=== PATIENT | female | born 2000 | race American Indian/Alaskan Native ===

== ENCOUNTER 2020-06-22 22:23 | Emergency (ER) | payer OTHER ==
[2020-06-22 22:31] VITALS: BP 119/74
[2020-06-23 00:03] LABS: Basophils % (Auto) 0.6 % (0.0-1.8); Hematocrit 35.7 % (30.3-42.9); Hemoglobin 12.4 gm/dl (10.1-14.3); Lymphocytes # (Auto) 1.4 K/mm3 (1.2-5.4); Lymphocytes % (Auto) 18.7 % (13.4-35.0); Mean Corpuscular HGB Conc 35 % (30-34); Mean Corpuscular Volume 88 fl (79-97); Monocytes # (Auto) 0.2 K/mm3 (0.0-0.8); Monocytes % (Auto) 3.1 % (0.0-7.3); Platelet Count 316 K/mm3 (140-440); Red Blood Count 4.07 M/mm3 (3.65-5.03); Red Cell Distribution Width 17.6 % (13.2-15.2)
[2020-06-23 00:23] LABS: Alanine Aminotransferase 18 units/L (7-56); Albumin 5.1 g/dL (3.9-5); Blood Urea Nitrogen 11 mg/dL (7-17); Calcium 9.9 mg/dL (8.4-10.2); Hemolysis Index 6
[2020-06-23 00:25] LABS: BUN/Creatinine Ratio 18
== END 2020-06-23 08:30 | disposition left against medical advice (07) ==
LOC: ED 22:23
DX: R11.10 Vomiting, unspecified (principal); Z53.21 Procedure and treatment not carried out due to patient leaving prior to being seen by health care provider
CPT/HCPCS: 36415; 80053; 83690; 84703; 85025